=== PATIENT | female | born 1950 | race Caucasian/White ===

== ENCOUNTER 2020-07-14 08:49 | Outpatient (REF) | payer MEDICARE, BC, SELFPAY ==
[2020-07-14 16:24] LABS: ALT 24 U/L (14-59); AST 16 U/L (15-37); Alkaline Phosphatase 125 U/L (46-116); Anion Gap 10.2 mmol/L (3-11); BUN 16 mg/dL (7-18); Bilirubin, Total 0.4 mg/dL (0.2-1.0); CO2 27.8 mmol/L (21.0-32.0); CREATININE 0.7 mg/dL (0.55-1.02); Calcium 8.7 mg/dL (8.5-10.1); Calculated LDL 157 mg/dL (<100); Chloride 108 mmol/L (98-107); Cholesterol 235 mg/dL (<200); Glucose 93 mg/dL (74-106); HDL Cholesterol 53 mg/dL (40-60); Potassium 3.8 mmol/L (3.5-5.1); Sodium 146 mmol/L (136-145); TSH (W/Ref FT4) 2.48 uIU/mL (0.36-3.74); Total Protein 7.2 g/dL (6.4-8.2); Triglyceride 128 mg/dL (<150)
== END 2020-07-14 08:50 | disposition home or self-care (01) ==
LOC: NCHCN 08:49
PROVIDERS: PCP Physician Assistant; Visit Provider Nurse Practitioner Family
DX: Z00.00 Encounter for general adult medical examination without abnormal findings (principal); Z68.41 Body mass index [BMI] 40.0-44.9, adult; E07.89 Other specified disorders of thyroid; F41.8 Other specified anxiety disorders; G47.33 Obstructive sleep apnea (adult) (pediatric); Z13.220 Encounter for screening for lipoid disorders; Z13.1 Encounter for screening for diabetes mellitus
CPT/HCPCS: 80053; 80061; 84443

== ENCOUNTER 2021-08-05 17:33 | Outpatient (REF) | payer MEDICARE, SELFPAY ==
[2021-08-05 19:25] LABS: Anion Gap 9.1 mmol/L (3-11); BUN 16 mg/dL (7-18); CO2 28.9 mmol/L (21.0-32.0); CREATININE 0.7 mg/dL (0.55-1.02); Calcium 9.4 mg/dL (8.5-10.1); Chloride 105 mmol/L (98-107); Glucose 92 mg/dL (74-106); Potassium 3.9 mmol/L (3.5-5.1); Sodium 143 mmol/L (136-145)
== END 2021-08-05 17:34 | disposition home or self-care (01) ==
LOC: NCHCN 17:33
PROVIDERS: PCP Physician Assistant; Visit Provider Physician Assistant
DX: E78.5 Hyperlipidemia, unspecified (principal); F41.8 Other specified anxiety disorders
CPT/HCPCS: 80048

== ENCOUNTER 2022-04-19 13:26 | Outpatient (REF) | payer MEDICARE, SELFPAY ==
[2022-04-19 21:01] LABS: Calculated LDL 157 mg/dL (<100); Cholesterol 245 mg/dL (<200); HDL Cholesterol 62 mg/dL (40-60); Triglyceride 130 mg/dL (<150)
[2022-04-19 23:33] LABS: TSH 1.97 uIU/mL (0.36-3.74)
== END 2022-04-19 13:27 | disposition home or self-care (01) ==
LOC: NCHCN 13:26
PROVIDERS: PCP Internal Medicine; Visit Provider Physician Assistant
DX: R94.6 Abnormal results of thyroid function studies (principal); F41.8 Other specified anxiety disorders; E78.5 Hyperlipidemia, unspecified
CPT/HCPCS: 80061; 84443

== ENCOUNTER 2022-05-08 09:07 | Outpatient (CLI) | payer MEDICARE, SELFPAY ==
--- NOTE | 2022-05-08 09:00 | RT.EKG_ITS ---
APPROVED REPORT Exam: Resting ECG Reason for Exam: palpitations Patient Location: O HR:70 bpm ECG Measurements Heart Rate 70 AXIS MO 177 P 5 QRSd 89 QRS 51 QT 404 T 45 QTc 436 Conclusion Sinus rhythm...normal P axis, V-rate 50- 99 Normal Electrocardiogram
== END 2022-05-08 09:08 | disposition home or self-care (01) ==
LOC: DI.CARD 09:08
PROVIDERS: PCP Internal Medicine; Visit Provider Internal Medicine Cardiovascular Disease
DX: R00.2 Palpitations (principal)
CPT/HCPCS: 93010

== ENCOUNTER → 2022-05-08 13:33 | Outpatient (BNVA) | payer MEDICARE, SELFPAY | PROVIDERS: PCP Internal Medicine; Referring Provider Internal Medicine; Visit Provider Internal Medicine Cardiovascular Disease | DX: R00.2 Palpitations (principal); R06.02 Shortness of breath | CPT/HCPCS: 93005; 99203 ==

== ENCOUNTER 2022-05-11 00:04 | Outpatient (CLI) | payer MEDICARE, SELFPAY ==
--- NOTE | 2022-05-11 08:00 | ETT_ITS ---
APPROVED REPORT Exam: Exercise Treadmill Patient Location: Out-Patient Room/Bed: Stress Nurse: Poornima Winn RN Ordering Provider:DAVID PEDRAZA, Contact Number: BMI: 42.50 Baseline Rhythm: Sinus Bradycardia Indications: SOB Medical History Medical History: SOB, Anxiety, LAYO, TIA, HLD, palpitations Cardiac Medications: Metoprolol, ASA, Albuterol Sulfate Allergies: Penicillin, Rosuvastatin, Lexapro Cardiac Risk Factors: HLD, Obesity Previous Cardiac Procedures: Stress test 2018 Pretest Chest Pain Characteristics: none Exercise History: Sedentary Physical Disabilities: None Lung Sounds: Clear to auscultation Heart Sounds: Regular Stress Test Details Test: Exercise stress testing was performed using a Mike protocol. Rest Stress HR Resting HR Supine: 58 bpm Max Heart Rate (APMHR): 151 bpm Resting HR Standin bpm Target HR (85% APMHR): 128 bpm Max HR Achieved: 154 bpm % of APMHR: 102 Recovery HR: 78 bpm HR response to stress: Normal HR response to stress BP Resting BP Supine: 148/78 mmHg Resting BP Standin/80 mmHg Max BP: 190/76 mmHg Recovery BP: 132/74 mmHg BP response to stress: Normal blood pressure response to stress. ECG Resting ECG: Sinus Bradycardia Ectopy: None Stress ECG: Sinus Rhythm, Sinus Tachycardia ST Change: Upsloping ST depression Lead(s): II, III, aVF Stage: [address] Deviation: 2 mm Arrhythmia: APC's, Non-sustained VT, VPC's Comment: frequent PAC's, occ PVCs, 2 runs of NSVT 3-4 beats Recovery ECG: Sinus Rhythm Recovery ST Change: No significant ST segment changes noted Recovery Arrhythmia: APC Comment: frequent PACs Clinical Reason for Termination: Fatigue Stress Symptoms: None Exercise duration: 6 min04 sec Highest Stage Reached: Stage 3: 3.4 mph at 14% grade. Exercise capacity: 7.12 METs Functional Capacity: Average Capacity Scale: Sedentary Angina Score: None Reed Treadmill Score: 5.1 Rate Pressure Product: [id number] Stress ECG Conclusion 1. Resting electrocardiogram was within normal limits. The patient exercised on the Mike protocol a nd completed a workload of 7.12 METS 2. Normal heart rate and blood pressure response to exercise. The patient achieved greater than 100% of predicted heart rate for age 5. There was no electrocardiographic evidence of myocardial ischemia 4. Ventricular ectopic beats were noted Reed Treadmill Score is 5.1 which is Low risk. Stress Test Summary STAGE Time (mins) Speed (mph) Grade (%) HR BP SpO2 SYMPTOMS METS Supine 58 148/78 96 Standing 60 130/80 96 1 3 1.7 10 114 160/90 94 4.5 2 6 2.5 12 150 94 7 1 min recovery 119 180/78 96 3 min recovery 85 190/76 98 6 min recovery 78 132/74 98
== END 2022-05-11 00:24 ==
LOC: DI 00:04
PROVIDERS: PCP Internal Medicine; Visit Provider Internal Medicine Cardiovascular Disease
DX: R06.02 Shortness of breath (principal)
CPT/HCPCS: 93016; 93018; 93017

== ENCOUNTER 2023-01-16 18:37 | Outpatient (REF) | payer MEDICARE, SELFPAY ==
[2023-01-16 19:34] LABS: ALT 31 U/L (14-59); AST 20 U/L (15-37); Alkaline Phosphatase 107 U/L (46-116); Anion Gap 9.7 mmol/L (3-11); BUN 16 mg/dL (7-18); Bilirubin, Total 0.5 mg/dL (0.2-1.0); CO2 26.3 mmol/L (21.0-32.0); CREATININE 0.7 mg/dL (0.55-1.02); Calcium 9.4 mg/dL (8.5-10.1); Calculated LDL 115 mg/dL (<100); Chloride 107 mmol/L (98-107); Cholesterol 209 mg/dL (<200); Estimated GFR 92.98 (mL/min/1.73m2); Glucose 102 mg/dL (74-106); HDL Cholesterol 61 mg/dL (40-60); Potassium 3.8 mmol/L (3.5-5.1); Sodium 143 mmol/L (136-145); Total Protein 7.6 g/dL (6.4-8.2); Triglyceride 167 mg/dL (<150)
[2023-01-18 09:27] LABS: Alpha 1 Antitrypsin,Serum 118 mg/dL (90-200)
== END 2023-01-16 18:38 | disposition home or self-care (01) ==
LOC: NCHCN 18:37
PROVIDERS: PCP Internal Medicine; Visit Provider Physician Assistant
DX: E78.5 Hyperlipidemia, unspecified (principal); J42 Unspecified chronic bronchitis; F41.8 Other specified anxiety disorders; I48.91 Unspecified atrial fibrillation; M25.562 Pain in left knee; Z00.00 Encounter for general adult medical examination without abnormal findings
CPT/HCPCS: 80053; 80061; 82103

== ENCOUNTER 2024-02-14 12:40 | Outpatient (REF) | payer MEDICARE, SELFPAY ==
[2024-02-14 19:12] LABS: Abs Immature Grans 0.04 10^3/uL (0.0-0.06); Absolute Basophil Count 0.06 10^3/uL (0.0-0.2); Absolute Eosinophil Count 0.15 10^3/uL (0.0-0.7); Absolute Lymphocyte Count 0.61 10^3/uL (1.2-3.4); Absolute Monocyte Count 0.52 10^3/uL (0.1-0.8); Absolute Neutrophil Count 5.82 10^3/uL (1.2-6.7); Basophils % 0.8 %; Eosinophils % 2.1 %; HCT 40.4 % (36.0-46.0); HGB 12.5 g/dL (11.2-15.7); Immature Grans % 0.6 %; Lymphocytes % 8.5 %; MCH 28.4 pg (27.0-33.0); MCHC 30.9 % (32.0-36.0); MCV 92 fL (80-95); MPV 11.2 fL (8.0-11.0); Monocytes % 7.2 %; Neutrophils % 80.8 %; Platelet Count 278 10^3/uL (130-400); RDW 12.7 % (11.7-14.6); RDW-SD 43.2 fL
[2024-02-14 19:53] LABS: ALT 23 U/L (14-59); AST 23 U/L (15-37); Alkaline Phosphatase 108 U/L (46-116); Anion Gap 9.2 mmol/L (3-11); BUN 11 mg/dL (7-18); Bilirubin, Total 0.36 mg/dL (0.2-1.0); CO2 26.8 mmol/L (21.0-32.0); CREATININE 0.7 mg/dL (0.55-1.02); Calcium 9.7 mg/dL (8.5-10.1); Chloride 108 mmol/L (98-107); Estimated GFR 92.41 (mL/min/1.73m2); Folate 8.6 ng/mL (8.6-20.0); Glucose 90 mg/dL (74-106); Sodium 144 mmol/L (136-145); TSH (W/Ref FT4) 4.38 uIU/mL (0.36-3.74); Vitamin B12 489 pg/mL (193-986); Vitamin D 25 Total 12.3 ng/mL (30-100)
[2024-02-14 20:09] LABS: FREE T4 0.75 ng/dL (0.76-1.46)
== END 2024-02-14 12:41 | disposition home or self-care (01) ==
LOC: NCHCN 12:40
PROVIDERS: PCP Internal Medicine; Visit Provider Physician Assistant
DX: R41.3 Other amnesia (principal)
CPT/HCPCS: 80053; 82306; 82607; 82746; 84439; 84443; 85025

== ENCOUNTER 2024-05-15 13:02 | Outpatient (REF) | payer MEDICARE, SELFPAY ==
[2024-05-15 19:49] LABS: TSH (W/Ref FT4) 5.37 uIU/mL (0.36-3.74); Vitamin D 25 Total 21.6 ng/mL (30-100)
[2024-05-15 20:08] LABS: FREE T4 0.73 ng/dL (0.76-1.46)
== END 2024-05-15 13:03 | disposition home or self-care (01) ==
LOC: NCHCN 13:02
PROVIDERS: PCP Internal Medicine; Visit Provider Physician Assistant
DX: R94.6 Abnormal results of thyroid function studies (principal); E55.9 Vitamin D deficiency, unspecified
CPT/HCPCS: 82306; 84439; 84443

== ENCOUNTER 2024-07-04 10:38 | Outpatient (REF) | payer MEDICARE, SELFPAY ==
[2024-07-04 20:10] LABS: FREE T4 0.71 ng/dL (0.76-1.46)
== END 2024-07-04 10:39 | disposition home or self-care (01) ==
LOC: NCHCN 10:38
PROVIDERS: PCP Internal Medicine; Visit Provider Physician Assistant
DX: E03.9 Hypothyroidism, unspecified (principal)
CPT/HCPCS: 84439; 84443

== ENCOUNTER 2024-08-14 10:12 | Outpatient (REF) | payer MEDICARE, SELFPAY ==
[2024-08-14 21:14] LABS: TSH (W/Ref FT4) 1.61 uIU/mL (0.36-3.74)
== END 2024-08-14 10:13 | disposition home or self-care (01) ==
LOC: NCHCN 10:12
PROVIDERS: PCP Internal Medicine; Visit Provider Physician Assistant
DX: E03.9 Hypothyroidism, unspecified (principal)
CPT/HCPCS: 84443

== ENCOUNTER 2024-09-03 09:31 | Outpatient (REF) | payer MEDICARE, SELFPAY ==
[2024-09-03 22:10] LABS: Vitamin D 25 Total 25 ng/mL (30-100)
== END 2024-09-03 09:32 | disposition home or self-care (01) ==
LOC: NCHCN 09:31
PROVIDERS: PCP Internal Medicine; Visit Provider Physician Assistant
DX: E55.9 Vitamin D deficiency, unspecified (principal)
CPT/HCPCS: 82306

== ENCOUNTER 2024-12-04 15:00 | Outpatient (REF) | payer MEDICARE, SELFPAY ==
[2024-12-04 19:03] LABS: Abs Immature Grans 0.02 10^3/uL (0.0-0.06); HCT 44.2 % (36.0-46.0); HGB 14.4 g/dL (11.2-15.7); Immature Grans % 0.3 %; MCH 28.9 pg (27.0-33.0); MCHC 32.6 % (32.0-36.0); MCV 89 fL (80-95); MPV 11.1 fL (8.0-11.0); Platelet Count 258 10^3/uL (130-400); RBC 4.98 10^6/uL (3.93-5.22); RDW 13.2 % (11.7-14.6); RDW-SD 43.0 fL; WBC 5.94 10^3/uL (4.4-10.8)
[2024-12-04 19:10] LABS: Glucose Negative (Negative)
[2024-12-04 19:28] LABS: C & S Indicated? No; WBC Negative HPF (0-5)
[2024-12-04 19:37] LABS: ALT 25 U/L (14-59); AST 24 U/L (15-37); Albumin 4.0 g/dL (3.4-5.0); Alkaline Phosphatase 100 U/L (46-116); Anion Gap 7.1 mmol/L (3-11); BUN 11 mg/dL (7-18); Bilirubin, Total 0.3 mg/dL (0.2-1.0); CO2 29.9 mmol/L (21.0-32.0); Calcium 9.8 mg/dL (8.5-10.1); Chloride 104 mmol/L (98-107); Estimated GFR 91.83 (mL/min/1.73m2); Glucose 92 mg/dL (74-106); Potassium 4.2 mmol/L (3.5-5.1); Sodium 141 mmol/L (136-145); Total Protein 7.8 g/dL (6.4-8.2); Vitamin D 25 Total 27 ng/mL (30-100)
== END 2024-12-04 15:01 | disposition home or self-care (01) ==
LOC: NCHCN 15:00
PROVIDERS: PCP Internal Medicine; Visit Provider Physician Assistant
DX: E55.9 Vitamin D deficiency, unspecified (principal)
CPT/HCPCS: 80053; 82306; 81003; 81015; 85025